=== PATIENT | female | born 1995 | race Caucasian/White ===

== ENCOUNTER 2022-02-13 08:40 | Outpatient (CLI) | payer OTHER, SELFPAY ==
[2022-02-13 09:06] VITALS: BP 133/83; PULSE 112
[2022-02-13 09:19] VITALS: RESP 16
== END 2022-02-13 09:35 | disposition home or self-care (01) ==
LOC: OPOB 08:48 → OBGYN 08:49
PROVIDERS: Visit Provider Obstetrics & Gynecology
DX: O36.8190 Decreased fetal movements, unspecified trimester, not applicable or unspecified (principal); Z3A.00 Weeks of gestation of pregnancy not specified
CPT/HCPCS: 99211

== ENCOUNTER 2022-03-26 14:38 | Emergency (ER) | payer OTHER, SELFPAY ==
[2022-03-26 14:54] VITALS: BP 144/115; PULSE 112; RESP 22; TEMP 36.8; O2SAT 99; BMI 29.2
--- NOTE | 2022-03-26 14:54 | PC.NURSE ---
Patient upon arrival to ER states she can feel baby move, denies leaking fluids, denies bleeding and does have some minor cramping.
--- NOTE | 2022-03-26 15:00 | PC.NURSE ---
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
--- NOTE | 2022-03-26 15:47 | ED_ITS ---
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 She then made her way to OB for monitoring who was concerned about her and sent her to the emergency department for further evaluation. She has a history of having preeclampsia with her first and was induced at 37 weeks resulting in a low transverse . She denies any difficulty with speech, focal weakness etc. Her who is with her states that she is talking normally and otherwise seems normal although she seems a bit little bit delayed in some of her answers to typical questions. She is eating normally today has had no recent illness. She states she has had good movement today and has had no other issues during this . She currently takes 81 mg of aspirin daily for prophylaxis against preeclampsia. She did not use tobacco or alcohol or street drugs. Location: head Associated symptoms: Reports no associated symptoms and headache(s); Deny chest pain, dyspnea, nausea, rash, palpitations or vomiting Review of Systems Const: Denies: fever(s), chills or body aches Eyes: Reports: blurry vision; Denies: change in vision or blind spots ENMT: Denies: throat pain, odynophagia or disequilibrium Card: Denies: chest pain, palpitations, irregular heart rhythm or swelling of feet/ankles Resp: Denies: dyspnea, productive cough or non-productive cough GI: Denies: abdominal pain, nausea or vomiting : Denies: flank pain, difficulty voiding or dysuria Musc: Denies: neck pain, back pain or extremity pain Skin/Breast: Denies: rash Neuro: Reports: headache(s); Denies: numbness in extremities, weakness in extremities, Slurred speech present or seizure-like activity Psych: Denies: anxiety or depression Endo: Denies: polyuria or polydipsia Danis/Lymph: Denies: easy bruising All/Imm: Denies: urticaria Physical Exam Narrative: EXAM NARRATIVE: Alert, makes good eye contact, speaks in generally goal-directed sentences. Const: COMMON NORMALS: no acute distress and patient oriented x3 GENERAL APPEARANCE: cooperative and comfortable HENMT: COMMON NORMALS: normocephalic, atraumatic, Normal nasal mucous membranes and turbinates present and moist oral mucous membranes HEAD & SCALP: normocephalic and atraumatic; no Temporal artery tenderness present NOSE: Normal nasal mucous membranes and turbinates present Eye: COMMON NORMALS: Equal, round and reactive pupils present, EOMs intact bilaterally, conjunctivae normal and no papilledema CONJUNCTIVA: Yes conjunctivae normal PUPIL: Yes Equal, round and reactive pupils present DIRECT OPHTHALMOSCOPY: Yes no papilledema Neck/C-Spine: COMMON NORMALS: full ROM, no lymphadenopathy, no meningeal signs and no JVD Lymph: LYMPHATIC: no lymphadenopathy noted Chest: COMMONS NORMALS: normal inspection of the chest Resp: COMMON NORMALS: normal respiratory effort, No retractions and No use of accessory muscles Cardio: COMMON NORMALS: no JVD, regular rate, regular rhythm, No murmurs present (Cardio) and Peripheral pulses 2+ throughout RATE: regular rate RHYTHM: regular rhythm PERIPHERAL PULSES: Peripheral pulses 2+ throughout GI: COMMON NORMALS: Soft to palpation PALPATION: Yes Soft to palpation OTHER: She has a nontender uterus with the fundus below the subxiphoid region. : COMMON NORMALS: Yes no CVA tenderness BLADDER/KIDNEY EXAM: Yes no CVA tenderness Back/Pelvis: COMMON NORMALS: no CVA tenderness, thoracic and lumbar spine normal to inspection and no thoracic nor lumbar tenderness Extremity: COMMON NORMALS: normal to inspection, full ROM, capillary refill normal, no calf tenderness and no pedal edema Neuro: COMMON NORMALS: patient oriented x3, no focal motor deficits, no sensory deficits noted and deep tendon reflexes 2+ bilaterally MENINGEAL SIGNS: Yes no meningeal signs OTHER: NIH examination resulted in a stroke score of 0 at this time. Psych: COMMON NORMALS: mental status grossly normal Skin: COMMON NORMALS: no rashes or lesions noted and turgor normal GENERAL SKIN EXAM: no rashes or lesions noted and turgor normal Course Reevaluation(s): Reevaluation #1: Patient resting comfortably. No new or focal findings. Pressures are well controlled at this time. Awaiting urine protein creatinine ratio which she appears to have no protein on initial urine analysis but so I suspect that this will also be unremarkable. does relate that there may be a contributing factor in her presentation today. He states that they are currently living with his parents for short period of time while their home is being remodeled and there is a been a lot of stressors at home and he wonders if that contributed to some of her symptoms earlier today. Certainly not out of the question and thus far her work-up has been very reassuring which supports that. The only outliers her initial blood pressure but we have had no other subsequent blood pressures of concern. Time: 17:33 Reevaluation #2: Urine creatinine protein ratio are very reassuring. 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 She her pressures have been reasonable while in the emergency department other than her initial pressure and she has no other findings of concern at this time. Discussed home blood pressure monitoring and close OB follow-up. At this time does not appear to have any evidence of an ongoing emergency medical condition and can be safely discharged with outpatient follow-up and good return precautions. 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 We reviewed her current findings and because of the mentation symptoms and if concern remains after work up about early preeclampsia and consideration for transfer to a location where there is maternal- medicine support. Time: 16:31 Vital Signs: Vital signs: Vital Signs Temperature 98.2 F 03/26/22 14:54 Pulse Rate 94 03/26/22 18:30 Respiratory Rate 16 03/26/22 18:30 Blood Pressure 115/76 03/26/22 18:30 Pulse Oximetry 97 03/26/22 18:30 MDM - General Adult Medical Decision Making Patient 29+ weeks with a history of preeclampsia with first with initial poor concentration and concerns about possible blood pressure elevations etc. Her evaluation here has been nonfocal in terms of her clinical examination. Her initial pressure was elevated but she is not had any sustained concerning blood pressures that would be in the associated hypertension and/or preeclampsia stayed. Her urine protein creatinine ratio are very reassuring. She did get receive a CT scan because some of her subtle symptoms with headache which is also reassuring. She has been observed in the emergency department for a prolonged period of time with a clinical and stable examination with reassuring heart tones, no other findings suggest other ongoing related concerns at this time. She will monitor her blood pressure at home continue with her 81 mg aspirin and other usual care and follow-up with her gelatin maker utility as scheduled this coming week. She is also instructed to return to this facility as soon as possible for any changing or new symptoms. Stable for discharge at this time. Lab Data I reviewed the patient's lab results. : 03/26/22 15:55 03/26/22 15:[address] 03/26/22 15:48 IMPRESSION: No acute intracranial pathology identified by CT. Laboratory Results WBC 10.5 10^3/uL (4.0-10.0) H 03/26/22 15:55 RBC 4.11 10^6/uL (4.1-5.3) 03/26/22 15:55 Hgb 11.0 g/dL (11.5-15.3) L 03/26/22 15:55 Hct 34.1 % (37.0-47.0) L 03/26/22 15:55 MCV 83.0 fl (81-99) 03/26/22 15:55 MCH 26.8 pg (28.0-34.0) L 03/26/22 15:55 MCHC 32.3 g/dL (30.0-36.0) 03/26/22 15:55 RDW 13.2 % (12.1-15.1) 03/26/22 15:55 Plt Count 367 10^3/cmm (130-400) 03/26/22 15:55 MPV 9.2 fL (7.4-10.4) 03/26/22 15:55 Neut % (Auto) 73.2 % 03/26/22 15:55 Lymph % (Auto) 17.2 % 03/26/22 15:55 [place] % (Auto) 7.3 % 03/26/22 15:55 Eos % (Auto) 2.0 % 03/26/22 15:55 Baso % (Auto) 0.1 % 03/26/22 15:55 Neut # (Auto) 7.68 10^3/uL (1.8-7.7) 03/26/22 15:55 Lymph # (Auto) 1.8 10^3/uL (0.8-4.8) 03/26/22 15:55 [place] # (Auto) 0.8 10^3/uL (0.2-0.9) 03/26/22 15:55 Eos # (Auto) 0.2 10^3/uL (0.0-0.8) 03/26/22 15:55 Baso # (Auto) 0.0 10^3/uL (0.0-0.1) 03/26/22 15:55 Nucleated RBC % (auto) 0 % 03/26/22 15:55 Nucleated RBCs # 0.0 /100WBC 03/26/22 15:55 Sodium 138 mmol/L (136-145) 03/26/22 15:55 Potassium 4.1 mmol/L (3.5-5.1) 03/26/22 15:55 Chloride 104 mmol/L (98-107) 03/26/22 15:55 Carbon Dioxide 23 mmol/L (22-29) 03/26/22 15:55 Anion Gap 15.1 (5-19) 03/26/22 15:55 BUN 3 mg/dL (6-20) L 03/26/22 15:55 Creatinine 0.4 mg/dL (0.5-0.9) L 03/26/22 15:55 GFR Calculation 192.9 mL/min (90-130) H 03/26/22 15:55 Glucose 113 mg/dL (65-115) 03/26/22 15:55 Calculated Osmolality 283 mOsm/kg (285-295) L 03/26/22 15:55 Calcium 9.4 mg/dL (8.5-10.5) 03/26/22 15:55 Total Bilirubin 0.2 mg/dL (0.15-1.2) 03/26/22 15:55 AST 21 U/L (0-32) 03/26/22 15:55 ALT 9 U/L (0-33) 03/26/22 15:55 Alkaline Phosphatase 89 IU/L (35-105) 03/26/22 15:55 Total Protein 6.2 g/dL (6.6-8.7) L 03/26/22 15:55 Albumin 3.4 g/dL (3.5-5.2) L 03/26/22 15:55 Globulin 2.8 g/dL (1.3-4.6) 03/26/22 15:55 Urine Color Straw (Yellow) 03/26/22 15:55 Urine Appearance Clear (CLEAR) 03/26/22 15:55 Urine pH 6 (5-7) 03/26/22 15:55 Ur Specific [place] 1.010 (1.005-1.030) 03/26/22 15:55 Urine Protein Neg (Negative) 03/26/22 15:55 Urine Glucose (UA) Norm (Normal) 03/26/22 15:55 Urine Ketones Negative (Negative) 03/26/22 15:55 Urine Blood Neg (Negative) 03/26/22 15:55 Urine Nitrate Negative (Negative) 03/26/22 15:55 Urine Bilirubin Neg (Negative) 03/26/22 15:55 Urine Urobilinogen Norm mg/dL (Negative) 03/26/22 15:55 Ur Leukocyte Esterase Negative (Negative) 03/26/22 15:55 U Random Total Protein 4 mg/dL 03/26/22 15:55 Urine Creatinine 15 mg/dL (28-217) L 03/26/22 15:55 Protein/Creatinin Ratio 0.27 mg/mg CR 03/26/22 15:55 Discharge Plan Discharge Patient Disposition: Home Clinical Impression: Transient elevated blood pressure, Intrauterine Condition: Stable Prescriptions: No Action aspirin [Aspir-81] 81 mg Tablet,Delayed Release (Dr/Ec) 81 mg PO DAILY 0RF [id number] ac-dha 30 mg iron- 1.4 mg-300 mg Combo Pack 1 pkg PO DAILY 0RF fluticasone propion-salmeterol 100-50 mcg/dose blister with device 1 inh INHALATION BID 0RF Discharge Orders: Discharge ED (Routine); Ordered 03/26/22 Ordered By: Carter Ventura Discharge Diet: Usual diet Discharge Activity: Resume usual activity Patient Instructions: Opioid Safety Activity Restrictions/Additional Instructions: Continue your vitamins and 81 mg aspirin daily. Monitor your blood pressure twice daily when you are sitting quietly for 10 to 15 minutes. If your blood pressure elevates greater than 135/85 continuously or you develop other concerning symptoms that we discussed return to this or the nearest emergency department. Follow-up with your gelatin maker utility as scheduled. Coding Level of Care Code ED Freelance Patternmaker for Lauren Fwd Exam Comprehensive
--- NOTE | 2022-03-26 15:48 | CTR_ITS ---
PROCEDURE INFORMATION: Exam: CT Head Without Contrast Exam date and time: 03/26/2022 4:00 PM Age: 26 years old Clinical indication: Pain; Headache; Additional info: WHITTEN, abn mental status, 29 weeks pg-shield TECHNIQUE: Imaging protocol: Computed tomography of the head without contrast. Radiation optimization: All CT scans at this facility use at least one of these dose optimization techniques: automated exposure control; mA and/or kV adjustment per patient size (includes targeted exams where dose is matched to clinical indication); or iterative reconstruction. COMPARISON: No relevant prior studies available. RADIATION DOSE METRICS: Total DLP (mGy-cm): 692.49 FINDINGS: Brain: There is no acute intracranial hemorrhage or abnormal extra-axial fluid collection identified. There is no intracranial mass effect or shift of midline structures. The rutledge-white differentiation is preserved throughout. There is no sulcal effacement. The basilar cisterns are open. Cerebral ventricles: No hydrocephalus or ventricular effacement. Paranasal sinuses: Visualized sinuses are unremarkable. No fluid levels. Mastoid air cells: Visualized mastoid air cells are well aerated. Bones/joints: No calvarial fracture or destructive osseous lesions are seen. Soft tissues: Unremarkable. CT/CT head wo con* [id number] IMPRESSION: No acute intracranial pathology identified by CT.
[2022-03-26 16:02] LABS: Add Urine Microscopic? NO; Charge for UA Resulting for Rev
[2022-03-26 16:06] VITALS: PULSE 96; RESP 19; O2SAT 97
[2022-03-26 16:12] LABS: Basophils % 0.1 %; Eosinophils # 0.2 10^3/uL (0.0-0.8); Hematocrit 34.1 % (37.0-47.0); Lymphocytes # 1.8 10^3/uL (0.8-4.8); Lymphocytes % 17.2 %; Mean Corpuscular HGB Conc 32.3 g/dL (30.0-36.0); Mean Corpuscular Hemoglobin 26.8 pg (28.0-34.0); Mean Platelet Volume 9.2 fL (7.4-10.4); Monocytes # 0.8 10^3/uL (0.2-0.9); Monocytes % 7.3 %; Neutrophils # 7.68 10^3/uL (1.8-7.7); Neutrophils % 73.2 %; Nucleated Red Blood Cells % 0 %; Platelet Count 367 10^3/cmm (130-400); Red Blood Count 4.11 10^6/uL (4.1-5.3); Red Cell Distribution Width 13.2 % (12.1-15.1); White Blood Count 10.5 10^3/uL (4.0-10.0)
[2022-03-26 16:29] LABS: Alanine Aminotransferase 9 U/L (0-33); Albumin Level 3.4 g/dL (3.5-5.2); Alkaline Phosphatase 89 IU/L (35-105); Blood Urea Nitrogen 3 mg/dL (6-20); Calcium 9.4 mg/dL (8.5-10.5); Carbon Dioxide 23 mmol/L (22-29); Chloride 104 mmol/L (98-107); Globulin 2.8 g/dL (1.3-4.6); Glomerular Filtration Rate 192.9 mL/min (90-130); Glucose 113 mg/dL (65-115); Osmolality Calculated 283 mOsm/kg (285-295); Sodium 138 mmol/L (136-145); Total Bilirubin 0.2 mg/dL (0.15-1.2); Total Protein 6.2 g/dL (6.6-8.7)
[2022-03-26 16:31] LABS: Bilirubin Urine Neg (Negative); Blood Urine Neg (Negative); Glucose Urine UA Norm (Normal); Ketones Urine Negative (Negative); Leukocyte Esterase Urine Negative (Negative); Nitrate Urine Negative (Negative); Protein Urine Neg (Negative); Urine Appearance Clear (CLEAR); Urine Color Straw (Yellow); Urobilinogen Urine Norm (Negative); pH Urine 6 (5-7)
[2022-03-26 16:40] LABS: Anion Gap 15.1 (5-19); Aspartate Amino Transferase 21 U/L (0-32); Potassium 4.1 mmol/L (3.5-5.1)
[2022-03-26 17:30] VITALS: BP 119/72; PULSE 99; RESP 16; O2SAT 99
[2022-03-26 18:30] VITALS: BP 115/76; PULSE 94; RESP 16; O2SAT 97
[2022-03-26 18:40] LABS: Urine Creatinine 15 mg/dL (28-217); Urine Protein Random 4 mg/dL
[2022-03-26 18:44] LABS: UPRO/UCREAT Ratio 0.27 mg/mg CR
== END 2022-03-26 19:08 | disposition home or self-care (01) ==
PROVIDERS: Emergency Provider Emergency Medicine
DX: O99.891 Other specified diseases and conditions complicating pregnancy (principal); R03.0 Elevated blood-pressure reading, without diagnosis of hypertension; Z3A.29 29 weeks gestation of pregnancy; Z79.82 Long term (current) use of aspirin; Z87.59 Personal history of other complications of pregnancy, childbirth and the puerperium
CPT/HCPCS: 70450; 80053; 81003; 82570; 84156; 85025; 99283

== ENCOUNTER 2022-05-22 06:50 | Outpatient (CLI) | payer OTHER, SELFPAY ==
[2022-05-22 07:00] VITALS: BMI 32.5
[2022-05-22 07:19] VITALS: BP 125/91; PULSE 133
[2022-05-22 07:24] VITALS: RESP 17; TEMP 36.6
[2022-05-22 07:36] LABS: Nitrazine Paper, PH Negative
[2022-05-22 07:39] VITALS: BP 110/75; PULSE 102
[2022-05-22 07:49] LABS: Actim Prom Negative
[2022-05-22 07:55] LABS: Bilirubin Urine Neg (Negative); Blood Urine 2+ (Negative); Glucose Urine UA Norm (Normal); Ketones Urine 1+ (Negative); Nitrate Urine Negative (Negative); Protein Urine Neg (Negative); Specific Gravity, Urine 1.015 (1.005-1.030); Urine Appearance Cloudy (CLEAR); Urine Color Yellow (Yellow); pH Urine 6 (5-7)
[2022-05-22 07:56] LABS: Leukocyte Esterase Urine 2+ (Negative); Urobilinogen Urine Norm (Negative)
[2022-05-22 07:59] VITALS: BP 115/85; PULSE 109
[2022-05-22 08:01] LABS: RBC Urine 0-4 /hpf (0-2); WBC Urine 15-25 /hpf (0-5)
[2022-05-22 08:02] LABS: Add Urine Culture? No; Bacteria Urine 2+ /hpf; Mucus Urine 1+ /hpf; Squamous Epithelial Cell Urine 40-55 /hpf (0-5)
[2022-05-22 08:10] VITALS: BP 115/85; PULSE 109
== END 2022-05-22 08:15 | disposition home or self-care (01) ==
LOC: OPOB 07:00 → OBGYN 07:02
PROVIDERS: Visit Provider Obstetrics & Gynecology
DX: O26.899 Other specified pregnancy related conditions, unspecified trimester (principal); Z3A.00 Weeks of gestation of pregnancy not specified; N89.8 Other specified noninflammatory disorders of vagina
CPT/HCPCS: 59025; 81001; 83986; 84112; 99211

== ENCOUNTER 2022-11-24 10:59 | Outpatient (CLI) | payer MEDICAID, SELFPAY ==
--- NOTE | 2022-11-24 12:06 | XRR_ITS ---
PROCEDURE INFORMATION: Exam: XR Left Knee Exam date and time: 11/24/2022 12:07 PM Age: 27 years old Clinical indication: Left; Patient HX: Chronic low back and lt knee pain, legs give out sometimes; Additional info: Left knee pain TECHNIQUE: Imaging protocol: Radiologic exam of the Left knee. Views: 3 views. COMPARISON: No relevant prior studies available. FINDINGS: Bones/joints: No radiographic evidence of acute fracture or dislocation. Alignment anatomic. Joint spaces preserved. No significant effusion. Soft tissues: Grossly unremarkable. XR/XR knee LT 3V* [id number] IMPRESSION: No acute radiographic findings.
--- NOTE | 2022-11-24 12:06 | XRR_ITS ---
PROCEDURE INFORMATION: Exam: XR Lumbosacral Spine Exam date and time: 11/24/2022 12:07 PM Age: 27 years old Clinical indication: Low back pain; Patient HX: Chronic low back and lt knee pain, legs give out sometimes; Additional info: Lumbar radiculopathy TECHNIQUE: Imaging protocol: Radiologic exam of the lumbosacral spine. Views: 2 or 3 views. COMPARISON: No relevant prior studies available. FINDINGS: Bones/joints: Normal. No acute fracture. Normal alignment. Soft tissues: Grossly unremarkable. XR/XR lumbar spine 2-3V* [id number] IMPRESSION: No acute radiographic findings.
== END 2022-11-24 11:00 | disposition home or self-care (01) ==
LOC: RAD 11:08
PROVIDERS: PCP Family Medicine; Visit Provider Family Medicine
DX: M25.562 Pain in left knee (principal); M54.16 Radiculopathy, lumbar region
CPT/HCPCS: 72100; 73562

== ENCOUNTER 2023-11-08 14:04 | Emergency (ER) | payer OTHER, MEDICAID, SELFPAY ==
[2023-11-08] VITALS (30 sets, daily range): BP systolic 104–144; BP diastolic 68–93; PULSE 65–87; RESP 16–24; TEMP 36.4; O2SAT 94–100; BMI 29.2
--- NOTE | 2023-11-08 14:21 | ECG_ITS ---
[facility] Test Date: 2023-11-08 Pat Name: Jaqueline Molina Department: Room: Gender: Female Quantitative Developer: : 1995 Requested By: Edil Deluca Order Number: [id number] Pedro Pablo MD: Fabiola Nelson M.D. Measurements Intervals [place] Rate: 87 P: 57 TN: 122 QRS: 88 QRSD: 86 T: 67 QT: 295 QTc: 355 Interpretive Statements Atrial fibrillation with controlled ventricular response rate MODERATE T-WAVE ABNORMALITY, CONSIDER INFERIOR ISCHEMIA [-0.1+ mV T-WAVE IN II/aVF] No previous ECG available for comparison Electronically Signed On 11-08-2023 17:43:27 CHEESE PRODUCTION SUPERVISOR by Fabiola Nelson M.D. [email or web address]
--- NOTE | 2023-11-08 14:29 | ED_ITS ---
HPI - Chest Pain 2 General: Chief Complaint: Chest Pain Stated Complaint: chest pain Time Seen by Provider: 11/08/23 14:24 Source: patient Mode of arrival: ambulatory History of Present Illness: 28-year-old female had a syncopal episod e after eating it is in the episode like this about a week ago she is planning to see her PCP tomorrow. She has syncopal episode last week. She has abdominal discomfort about 1/2-hour after eating. She also reports an episode recently where her heart rate went up to 140s and 150s on her Apple Watch monitor. Resolved spontaneously. Did not have a syncopal episode during that time. MD complaint: chest pain Onset (ago): minute(s) Prior episodes: Yes Onset: during rest Associated symptoms: Reports palpitations and syncope; Deny abdominal pain, diaphoresis, dyspnea, fever(s), leg edema, nausea, sense of impending doom or vomiting Treatment prior to arrival: none Review of Systems 2 Const: Denies: fever(s), chills or diaphoresis Card: Reports: palpitations and syncope; Denies: chest pain Resp: Denies: dyspnea GI: Denies: abdominal pain, nausea or vomiting : Denies: dysuria, urinary frequency or urinary urgency Musc: Denies: neck pain or back pain Skin/Breast: Denies: rash PFSH ED 2 PFSH: Medical History Asthma Surgical History History of tubal ligation Bilateral tube removal History of section x 2 Family History Grandmother Diabetes Social History Smoking and tobacco/nicotine status: never used tobacco/nicotine Alcohol intake: current Alcohol intake frequency: holidays/special occasions only Substance/Drug Use: never Additional social history: Raised by aunt and uncle. Parents left early. 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 Physical Exam 2 Const: COMMON NORMALS: no acute distress GENERAL APPEARANCE: cooperative and comfortable ORIENTATION/CONSCIOUSNESS: Yes awake, Yes oriented to person, Yes oriented to place and Yes oriented to time HENMT: COMMON NORMALS: normocephalic, atraumatic and hearing grossly normal bilaterally HEAD & SCALP: normocephalic and atraumatic Resp: COMMON NORMALS: normal respiratory effort, No retractions, No use of accessory muscles and clear to auscultation bilaterally AUSCULTATION: clear to auscultation bilaterally Cardio: COMMON NORMALS: regular rate, regular rhythm and No murmurs present (Cardio) RATE: regular rate RHYTHM: regular rhythm GI: COMMON NORMALS: Soft to palpation and No hepatosplenomegaly present A USCULTATION: Yes normoactive bowel sounds PALPATION: Yes Soft to palpation, No Tenderness to palpation present (GI), No Guarding due to palpation present (GI) and Yes No hepatosplenomegaly present Extremity: COMMON NORMALS: normal to inspection, capillary refill normal, no clubbing, cyanosis or edema, no calf tenderness and no pedal edema Neuro: SENSORIUM/ORIENTATION: Yes oriented to person, Yes oriented to place and Yes oriented to time Skin: COMMON NORMALS: no rashes or lesions noted GENERAL SKIN EXAM: no rashes or lesions noted Course 2 Vital Signs: Vital signs: Vital Signs Temperature 97.6 F 11/08/23 14:17 Pulse Rate 71 11/08/23 16:55 Respiratory Rate 19 H 11/08/23 16:55 Blood Pressure 107/72 11/08/23 16:30 Pulse Oximetry 97 11/08/23 16:55 Oxygen Delivery Me thod Room Air 11/08/23 15:30 MDM - Chest Pain Medical Decision Making Patient had syncopal episodes twice now. No acute findings in the emergency room. You can safely be discharged home however she should have a 48-hour Holter monitor she described an episode at home her heart rate was up in the 140s and 150s initially we will get an echocardiogram set up and have her follow-up with her primary care doctor return if she has further problems. Reviewed potential triggers with her does not sound like she really has any of these that are likely to be affecting. She does not use alcohol she is not using again decongestants she did not have excessive caffeine intake or energy drink intake. Recheck if not improving or has recurrence since. Medical Records I reviewed the patient's medical records. Lab Data I reviewed the patient's lab results. 11/08/23 15:00 11/08/23 15:00 Laboratory Results WBC 9.12 10^3/uL (3.29-11.43) 11/08/23 15:00 RBC 5.10 10^6/uL (3.85-5.65) 11/08/23 15:00 Hgb 13.90 g/dL (11.27-16.99) 11/08/23 15:00 Hct 43.5 % (36-47) 11/08/23 15:00 MCV 85.3 fl (85-98) 11/08/23 15:00 MCH 27.3 pg (27-33) 11/08/23 15:00 MCHC 32.0 g/dL (30-55) 11/08/23 15:00 RDW 13.7 % (12.1-15.1) 11/08/23 15:00 Plt Count 355 10^3/cmm (157-399) 11/08/23 15:00 MPV 8.8 fL (7.4-10.4) 11/08/23 15:00 Neut % (Auto) 67.1 % 11/08/23 15:00 Lymph % (Auto) 23.2 % 11/08/23 15:00 [place] % (Auto) 6.4 % 11/08/23 15:00 Eos % (Auto) 2.7 % 11/08/23 15:00 Baso % (Auto) 0.5 % 11/08/23 15:00 Neut # (Auto) 6.11 10^3/uL (1.8-7.7) 11/08/23 15:00 Lymph # (Auto) 2.1 10^3/uL (0.8-4.8) 11/08/23 15:00 [place] # (Auto) 0.6 10^3/uL (0.2-0.9) 11/08/23 15:00 Eos # (Auto) 0.3 10^3/uL (0.0-0.8) 11/08/23 15:00 Baso # (Auto) 0.1 10^3/uL (0.0-0.1) 11/08/23 15:00 Nucleated RBC % (auto) 0 % 11/08/23 15:00 Nucleated RBCs # 0.0 /100WBC 11/08/23 15:00 Sodium 137 mmol/L (136-145) 11/08/23 15:00 Potassium 3.4 mmol/L (3.5-5.1) L 11/08/23 15:00 Chloride 101 mmol/L (98-107) 11/08/23 15:00 Carbon Dioxide 27 mmol/L (22-29) 11/08/23 15:00 Anion Gap 12.4 (5-19) 11/08/23 15:00 BUN 5 mg/dL (6-20) L 11/08/23 15:00 Creatinine 0.6 mg/dL (0.5-0.9) 11/08/23 15:00 GFR Calculation 119.0 mL/min (90-130) 11/08/23 15:00 Glucose 90 mg/dL (65-115) 11/08/23 15:00 Calculated Osmolality 281 mOsm/kg (285-295) L 11/08/23 15:00 Calcium 9.6 mg/dL (8.5-10.5) 11/08/23 15:00 Total Bilirubin 0.4 mg/dL (0.15-1.2) 11/08/23 15:00 AST 12 U/L (0-32) 11/08/23 15:00 ALT 10 U/L (0-33) 11/08/23 15:00 Alkaline Phosphatase 75 U/L (35-105) 11/08/23 15:00 Troponin T Baseline < 6 ng/L (0-10) 11/08/23 15:00 Total Protein 7.2 g/dL (6.6-8.7) 11/08/23 15:00 Albumin 4.4 g/dL (3.5-5.2) 11/08/23 15:00 Globulin 2.8 g/dL (1.3-4.6) 11/08/23 15:00 HCG, Qual Negative (Negative) 11/08/23 15:00 All radiology interpretation(s) finalized by discharge Discharge Plan Discharge Patient Disposition: Home Clinical Impression: Syncope Condition: Stable Prescriptions: No Action fluticasone propion-salmeterol 250-50 mcg/dose blister with device 1 inh inhalation Q12H Qty: 60 6RF montelukast 10 mg tablet 10 mg PO DAILY Qty: 30 6RF sertraline 50 mg tablet 50 mg PO DAILY Qty: 30 3RF albuterol sulfate [ProAir HFA] 90 mcg/actuation HFA aerosol inhaler 2 puff inhalation Q6H PRN (Reason: shortness of breath or wheezing) Qty: 8.5 6RF [id number] ac-dha 30 mg iron- 1.4 mg-300 mg Combo Pack 1 pkg PO DAILY Discharge Orders: Discharge ED (Routine); Ordered 11/08/23 Ordered By: Edil Carrillo Referrals: Cecilio Harris MD [Primary Care Provider] - Discharge Diet: Usual diet Discharge Activity: Increase activity as tolerated Patient Instructions: Opioid Safety, Pain Management Activity Restrictions/Additional Instructions: Thank you for choosing [facility] for your healthcare needs today. Please realize this is an emergency room and that we are providing you with a medical screening exam and this may not be complete and all inclusive of all the testing and or work up that you may need to determine your ailment or severity of your illness. It is very important that you follow up as instructed or that you return to the Emergency Department should you have concerns or if your condition changes or worsens in any way. You were seen today for a near syncopal episode. Cardiac enzymes and laboratory test the emergency room did not show any significant abnormalities. Would recommend that he have an outpatient echocardiogram and 48-hour Holter monitor and follow-up with Dr. Harris. If you have recurrent episodes return to the emergency room. Coding Level of Care Code ED Apparatus Lineman for Lauren Gordillo
--- NOTE | 2023-11-08 15:00 | XR_ITS ---
WS: [id number] Portable AP upright chest, 11/08/2023 Clinical Data: dyspnea/cough Comparison: None. Findings: No nodules, masses or effusions are seen. The heart is normal. The pulmonary vascularity is not increased. No pneumonia or pneumothorax is seen. Monitor leads are on the chest wall. Impression: Negative chest.
[2023-11-08 15:20] LABS: Basophils # 0.1 10^3/uL (0.0-0.1); Basophils % 0.5 %; Eosinophils # 0.3 10^3/uL (0.0-0.8); Eosinophils % 2.7 %; Hematocrit 43.5 % (36-47); Lymphocytes # 2.1 10^3/uL (0.8-4.8); Lymphocytes % 23.2 %; Mean Corpuscular Hemoglobin 27.3 pg (27-33); Mean Corpuscular Volume 85.3 fl (85-98); Mean Platelet Volume 8.8 fL (7.4-10.4); Monocytes # 0.6 10^3/uL (0.2-0.9); Monocytes % 6.4 %; Neutrophils # 6.11 10^3/uL (1.8-7.7); Neutrophils % 67.1 %; Nucleated Red Blood Cells % 0 %; Platelet Count 355 10^3/cmm (157-399); Red Cell Distribution Width 13.7 % (12.1-15.1); White Blood Count 9.12 10^3/uL (3.29-11.43)
[2023-11-08 15:37] LABS: Troponin(5th) Baseline < 6 ng/L (0-10)
[2023-11-08 15:38] LABS: Alanine Aminotransferase 10 U/L (0-33); Albumin Level 4.4 g/dL (3.5-5.2); Alkaline Phosphatase 75 U/L (35-105); Anion Gap 12.4 (5-19); Aspartate Amino Transferase 12 U/L (0-32); Blood Urea Nitrogen 5 mg/dL (6-20); Calcium 9.6 mg/dL (8.5-10.5); Carbon Dioxide 27 mmol/L (22-29); Chloride 101 mmol/L (98-107); Globulin 2.8 g/dL (1.3-4.6); Glucose 90 mg/dL (65-115); Osmolality Calculated 281 mOsm/kg (285-295); Potassium 3.4 mmol/L (3.5-5.1); Sodium 137 mmol/L (136-145); Total Bilirubin 0.4 mg/dL (0.15-1.2); Total Protein 7.2 g/dL (6.6-8.7)
[2023-11-08 15:43] LABS: HCG, Serum Qual Negative (Negative)
--- NOTE | 2023-11-08 17:00 | ECG_ITS ---
[facility] Test Date: 2023-11-08 Pat Name: Jaqueline Molina Department: Room: Gender: Female Sec Reporting Consultant: : 1995 Requested By: Edil Deluca Order Number: [id number] Pedro Pablo MD: Fabiola Nelson M.D. Measurements Intervals [place] Rate: 61 P: 58 WI: 116 QRS: 85 QRSD: 98 T: 121 QT: 384 QTc: 388 Interpretive Statements SINUS RHYTHM WITH SHORT WI INTERVAL NONSPECIFIC T-WAVE ABNORMALITY Compared to ECG 11/08/2023 14:11:58 Short [place] interval now present Possible ischemia no longer present T-wave abnormality still present Electronically Signed On 11-08-2023 17:51:00 SOLDER [employer]EVEL[employer]AR[employer] by Fabiola Nelson M.D. [id number]
== END 2023-11-08 17:19 | disposition home or self-care (01) ==
PROVIDERS: Emergency Provider Family Medicine; PCP Family Medicine
DX: R55 Syncope and collapse (principal)
CPT/HCPCS: 71045; 80053; 84484; 84703; 85025; 93005; 99285

== ENCOUNTER 2023-11-10 17:09 | Emergency (ER) | payer OTHER, SELFPAY ==
--- NOTE | 2023-11-10 17:14 | ECG_ITS ---
[facility] Test Date: 2023-11-10 Pat Name: Jaqueline Molina Department: Room: Gender: Female Software Development Coordinator: : 1995 Requested By: Alysha Sharma Order Number: [id number] Pedro Pablo MD: Ana Escobedo M.D. Measurements Intervals [place] Rate: 85 P: 45 [place]: 134 QRS: 79 QRSD: 80 T: 44 QT: 353 QTc: 421 Interpretive Statements SINUS RHYTHM WITH SINUS ARRHYTHMIA LOW QRS VOLTAGE IN PRECORDIAL LEADS [QRS DEFLECTION < 1.0 mV IN CHEST LEADS] NONSPECIFIC T-WAVE ABNORMALITY Compared to ECG 11/08/2023 17:02:20 Low QRS voltage now present Short [place] interval no longer present T-wave abnormality still present Electronically Signed On 11-10-2023 22:20:46 TRIAL JUSTICE by Ana Escobedo M.D. [email or web address] ([id number]
--- NOTE | 2023-11-10 17:19 | CTR_ITS ---
PROCEDURE INFORMATION: Exam: CT Head Without Contrast Exam date and time: 11/10/2023 5:44 PM Age: 28 years old Clinical indication: Syncope and collapse TECHNIQUE: Imaging protocol: Computed tomography of the head without contrast. Radiation optimization: All CT scans at this facility use at least one of these dose optimization techniques: automated exposure control; mA and/or kV adjustment per patient size (includes targeted exams where dose is matched to clinical indication); or iterative reconstruction. REPORTING DATA: Count of CT and Cardiac NM exams in prior 12 months: This patient has received 0 known CTs and 0 known cardiac nuclear medicine studies in the 12 months prior to the current study. COMPARISON: CT head wo con* [id number] 03/26/2022 4:00 PM RADIATION DOSE METRICS: Total DLP (mGy-cm): 959 FINDINGS: Brain: Normal. No hemorrhage. Unremarkable white matter. No mass effect. Cerebral ventricles: No ventriculomegaly. Paranasal sinuses: Visualized sinuses are unremarkable. No fluid levels. Mastoid air cells: Visualized mastoid air cells are well aerated. Bones/joints: Unremarkable. No acute fracture. Soft tissues: Unremarkable. CT/CT head wo con* [id number] IMPRESSION: No acute intracranial abnormality.
[2023-11-10 17:20] VITALS: BP 156/111; PULSE 88; RESP 18; TEMP 36.3; O2SAT 100; BMI 31.2
--- NOTE | 2023-11-10 17:31 | ED_ITS ---
HPI - Syncope 2 General: Chief Complaint: Syncope Stated Complaint: passing out Time Seen by Provider: 11/10/23 17:16 Source: patient Mode of arrival: ambulatory Limitations: no limitations History of Present Illness: 20-year-old female has been having synco pal events over the last few days she was seen here 2 days ago when she had a syncopal event. Patient's workup then was normal she had follow-up with PCP yesterday. Patient is at work today and passed out again patient currently states she just feels very tired she denies any pain anywhere denies any worsening proving factors. Associated symptoms: Deny abdominal pain, chest pain, fever(s), headache(s) or nausea Review of Systems 2 Const: Denies: fever(s), chills, body aches or change in appetite Eyes: Denies: blurry vision or eye discomfort ENMT: Denies: throat pain or dental pain Card: Reports: syncope; Denies: chest pain Resp: Denies: dyspnea GI: Denies: abdominal pain, nausea, vomiting or diarrhea Musc: Denies: neck pain or back pain Skin/Breast: Denies: rash Neuro: Denies: headache(s) PFSH ED 2 PFSH: Medical History Asthma Surgical History History of tubal ligation Bilateral tube removal History of section x 2 Family History Grandmother Diabetes Social History Smoking and tobacco/nicotine status: never used tobacco/nicotine Alcohol intake: current Alcohol intake frequency: holidays/special occasions only Substance/Drug Use: never Additional social history: Raised by aunt and uncle. Parents left early. 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 Physical Exam 2 Const: COMMON NORMALS: no acute distress, patient oriented x3 and healthy appearing HENMT: COMMON NORMALS: normocephalic and atraumatic HEAD & SCALP: n ormocephalic and atraumatic Eye: COMMON NORMALS: Equal, round and reactive pupils present and EOMs intact bilaterally PUPIL: Yes Equal, round and reactive pupils present Neck/C-Spine: COMMON NORMALS: full ROM and supple Chest: COMMONS NORMALS: normal inspection of the chest and normal palpation of entire chest wall Resp: COMMON NORMALS: normal respiratory effort, No retractions, No use of accessory muscles and clear to auscultation bilaterally AUSCULTATION: clear to auscultation bilaterally Cardio: COMMON NORMALS: regular rate, regular rhythm and No murmurs present (Cardio) RATE: regular rate RHYTHM: regular rhythm GI: COMMON NORMALS: Normal to inspection, nondistended, normoactive bowel sounds present, Soft to palpation, non-tender and no masses PALPATION: Yes Soft to palpation Extremity: COMMON NORMALS: normal to inspection and full ROM Neuro: COMMON NORMALS: patient oriented x3, moves all extremities and no focal motor deficits Psych: COMMON NORMALS: mental status grossly normal, Normal thought process present and cooperative THOUGHT PROCESS: Normal thought process present Skin: COMMON NORMALS: no rashes or lesions noted and no wounds GENERAL SKIN EXAM: no rashes or lesions noted Course 2 Vital Signs: Vital signs: Vital Signs Temperature 97.4 F L 11/10/23 17:20 Pulse Rate 94 11/10/23 19:19 Respiratory Rate 29 H 11/10/23 19:19 Blood Pressure 110/71 11/10/23 19:19 Pulse Oximetry 93 11/10/23 19:19 Oxygen Delivery Me thod Room Air 11/10/23 19:19 MDM - Syncope Medical Decision Making Patient presents after a syncopal event she has been well-appearing here EKG x- ray head CT are all normal we will get her follow-up with neurology as well she feels improved she is stable for discharge return if worsening. Medical Records I reviewed the patient's medical records. Lab Data I reviewed the patient's lab results. 11/10/23 17:40 11/10/23 17:[address] 11/10/23 17:19 IMPRESSION: No acute intracranial abnormality. Chest X-Ray 11/10/23 17:55 IMPRESSION: No acute findings. Laboratory Results WBC 8.61 10^3/uL (3.29-11.43) 11/10/23 17:40 RBC 4.92 10^6/uL (3.85-5.65) 11/10/23 17:40 Hgb 13.60 g/dL (11.27-16.99) 11/10/23 17:40 Hct 41.9 % (36-47) 11/10/23 17:40 MCV 85.2 fl (85-98) 11/10/23 17:40 MCH 27.6 pg (27-33) 11/10/23 17:40 MCHC 32.5 g/dL (30-55) 11/10/23 17:40 RDW 13.9 % (12.1-15.1) 11/10/23 17:40 Plt Count 298 10^3/cmm (157-399) 11/10/23 17:40 MPV 8.8 fL (7.4-10.4) 11/10/23 17:40 Neut % (Auto) 79.9 % 11/10/23 17:40 Lymph % (Auto) 11.0 % 11/10/23 17:40 [place] % (Auto) 5.9 % 11/10/23 17:40 Eos % (Auto) 2.7 % 11/10/23 17:40 Baso % (Auto) 0.3 % 11/10/23 17:40 Neut # (Auto) 6.87 10^3/uL (1.8-7.7) 11/10/23 17:40 Lymph # (Auto) 1.0 10^3/uL (0.8-4.8) 11/10/23 17:40 [place] # (Auto) 0.5 10^3/uL (0.2-0.9) 11/10/23 17:40 Eos # (Auto) 0.2 10^3/uL (0.0-0.8) 11/10/23 17:40 Baso # (Auto) 0.0 10^3/uL (0.0-0.1) 11/10/23 17:40 Nucleated RBC % (auto) 0 % 11/10/23 17:40 Nucleated RBCs # 0.0 /100WBC 11/10/23 17:40 Sodium 136 mmol/L (136-145) 11/10/23 17:40 Potassium 3.8 mmol/L (3.5-5.1) 11/10/23 17:40 Chloride 101 mmol/L (98-107) 11/10/23 17:40 Carbon Dioxide 25 mmol/L (22-29) 11/10/23 17:40 Anion Gap 13.8 (5-19) 11/10/23 17:40 BUN 11 mg/dL (6-20) 11/10/23 17:40 Creatinine 0.7 mg/dL (0.5-0.9) 11/10/23 17:40 GFR Calculation 99.6 mL/min (90-130) 11/10/23 17:40 Glucose 88 mg/dL (65-115) 11/10/23 17:40 POC Glucose 70 mg/dL (70-110) 11/10/23 17:15 Calculated Osmolality 281 mOsm/kg (285-295) L 11/10/23 17:40 Calcium 9.3 mg/dL (8.5-10.5) 11/10/23 17:40 Total Bilirubin 0.6 mg/dL (0.15-1.2) 11/10/23 17:40 AST 12 U/L (0-32) 11/10/23 17:40 ALT 9 U/L (0-33) 11/10/23 17:40 Alkaline Phosphatase 78 U/L (35-105) 11/10/23 17:40 Total Protein 7.3 g/dL (6.6-8.7) 11/10/23 17:40 Albumin 4.4 g/dL (3.5-5.2) 11/10/23 17:40 Globulin 2.9 g/dL (1.3-4.6) 11/10/23 17:40 TSH 1.62 uIU/mL (0.27-4.20) 11/10/23 17:40 HCG, Qual Negative (Negative) 11/10/23 17:40 All radiology interpretation(s) finalized by discharge EKG Data EKG 1: I personally reviewed and interpreted this EKG as follows: EKG interpretation date: 11/10/23 EKG interpretation time: 18:22 Interpretation: nsr hr [address] or t wave abnormalities qrs 80 qtc 395 Discharge Plan Discharge Patient Disposition: Home Clinical Impression: Syncope Qualifiers: Syncope type: unspecified Qualified Code(s): R55 - Syncope and collapse Condition: Stable Prescriptions: No Action fluticasone propion-salmeterol 250-50 mcg/dose blister with device 1 inh inhalation Q12H Qty: 60 6RF montelukast 10 mg tablet 10 mg PO DAILY Qty: 30 6RF sertraline 50 mg tablet 50 mg PO DAILY Qty: 30 3RF albuterol sulfate [ProAir HFA] 90 mcg/actuation HFA aerosol inhaler 2 puff inhalation Q6H PRN (Reason: shortness of breath or wheezing) Qty: 8.5 6RF [id number] ac-dha 30 mg iron- 1.4 mg-300 mg Combo Pack 1 pkg PO DAILY Discharge Orders: Discharge ED (Routine); Ordered 11/10/23 Ordered By: Alysha Sharma Referrals: Freya De La Torre MD [Physician] - 1-3 days Cecilio Harris MD [Primary Care Provider] - Discharge Diet: Advance as tolerated Discharge Activity: Resume usual activity Patient Instructions: Syncope (ED) Coding Level of Care Code ED Family Dinner Service Specialist for Lauren Gordillo
[2023-11-10 17:49] LABS: Basophils % 0.3 %; Eosinophils # 0.2 10^3/uL (0.0-0.8); Eosinophils % 2.7 %; Hematocrit 41.9 % (36-47); Mean Corpuscular HGB Conc 32.5 g/dL (30-55); Mean Corpuscular Hemoglobin 27.6 pg (27-33); Mean Corpuscular Volume 85.2 fl (85-98); Mean Platelet Volume 8.8 fL (7.4-10.4); Monocytes # 0.5 10^3/uL (0.2-0.9); Monocytes % 5.9 %; Neutrophils # 6.87 10^3/uL (1.8-7.7); Neutrophils % 79.9 %; Nucleated Red Blood Cells % 0 %; Platelet Count 298 10^3/cmm (157-399); Red Blood Count 4.92 10^6/uL (3.85-5.65); Red Cell Distribution Width 13.9 % (12.1-15.1); White Blood Count 8.61 10^3/uL (3.29-11.43)
--- NOTE | 2023-11-10 17:55 | XRR_ITS ---
PROCEDURE INFORMATION: Exam: XR Chest Exam date and time: 11/10/2023 6:02 PM Age: 28 years old Clinical indication: Other: Syncope TECHNIQUE: Imaging protocol: Radiologic exam of the chest. Views: 1 view. COMPARISON: CR XR chest 1V portable [id number] 11/08/2023 3:03 PM FINDINGS: Lungs: Unremarkable. No consolidation. Pleural spaces: Unremarkable. No pleural effusion. No pneumothorax. Heart/Mediastinum: Unremarkable. No cardiomegaly. Bones/joints: Unremarkable. XR/XR chest 1V portable [id number] IMPRESSION: No acute findings.
[2023-11-10 18:00] VITALS: BP 134/79; PULSE 86; RESP 16; O2SAT 90
[2023-11-10 18:03] LABS: Glucose Point of Care 70 mg/dL (70-110)
[2023-11-10] MEDS: sodium chloride 0.9% 1,000 ML 999 ML IV (18:09)
[2023-11-10 18:13] LABS: HCG, Serum Qual Negative (Negative)
[2023-11-10 18:15] VITALS: BP 134/79; PULSE 85; RESP 22; O2SAT 95
[2023-11-10 18:24] LABS: Alanine Aminotransferase 9 U/L (0-33); Albumin Level 4.4 g/dL (3.5-5.2); Alkaline Phosphatase 78 U/L (35-105); Anion Gap 13.8 (5-19); Aspartate Amino Transferase 12 U/L (0-32); Blood Urea Nitrogen 11 mg/dL (6-20); Calcium 9.3 mg/dL (8.5-10.5); Carbon Dioxide 25 mmol/L (22-29); Chloride 101 mmol/L (98-107); Creatinine Clr Calc Pharmacy 106.4011; Globulin 2.9 g/dL (1.3-4.6); Glomerular Filtration Rate 99.6 mL/min (90-130); Glucose 88 mg/dL (65-115); Osmolality Calculated 281 mOsm/kg (285-295); Potassium 3.8 mmol/L (3.5-5.1); Sodium 136 mmol/L (136-145); Thyroid Stimulating Hormone 1.62 uIU/mL (0.27-4.20); Total Bilirubin 0.6 mg/dL (0.15-1.2); Total Protein 7.3 g/dL (6.6-8.7)
[2023-11-10 18:30] VITALS: BP 113/70; PULSE 94; RESP 20; O2SAT 30
[2023-11-10 19:00] VITALS: BP 110/71; PULSE 87; RESP 28; O2SAT 88
[2023-11-10 19:19] VITALS: BP 110/71; PULSE 94; RESP 29; O2SAT 93
--- NOTE | 2023-11-11 07:47 | DCPLANNER ---
Message was sent to Dr. Bonner office on 11/11/23 at 0747. Clinic to contact patient for appointment.
== END 2023-11-10 19:35 | disposition home or self-care (01) ==
PROVIDERS: Emergency Provider Emergency Medicine; PCP Family Medicine
DX: R55 Syncope and collapse (principal)
CPT/HCPCS: 36416; 70450; 71045; 80053; 82962; 84443; 84703; 85025; 93005; 96360; 99285; J7030

== ENCOUNTER 2023-11-25 08:27 | Outpatient (CLI) | payer OTHER, MEDICAID, SELFPAY ==
--- NOTE | 2023-11-25 09:00 | USCV_ITS ---
Jaqueline Molina Age: 28 Gender: F : 1995 Exam Date: 11/25/2023 08:48 Ordering Phys: Cecilio Harris MD Technologist: CT Exam Location: [facility] [place] Indication: syncope BP: 136 / 78 HR: 95 Rhythm: Sinus Technical Quality: Adequate MEASUREMENTS (Male / Female) Normal Values 2D ECHO LV Chamber Size 4.6 cm RV Chamber Size 3.8 cm LVOT Diameter 2.0 cm LV Ejection Fraction MOD 2C 61.5 % LV Ejection Fraction 2C AL 61.9 % LA Diameter 3.3 cm LA Width 3.1 cm LA Height 3.3 cm RA Width 3.0 cm RA Height 4.0 cm Aorta at Sinotubular Diameter 2.1 cm IVC Diameter 1.4 cm M-MODE Aortic Annulus Diameter 3.1 cm LA Ao Ratio MM 1.1 MV E Point Septal Separation 0.4 cm DOPPLER AV Peak Velocity 141.0 cm/s LVOT Peak Velocity 62.7 cm/s AV Area Cont Eq vti 1.4 cm squared AV Area Cont Eq pk 1.5 cm squared MV E' Velocity 19.0 cm/s TR Peak Velocity 79.0 cm/s TR Peak Gradient 2.5 mmHg TV Peak E Velocity 72.0 cm/s Right Atrial Pressure 3.0 mmHg Pulmonary Artery Systolic Pressu 5.5 mmHg PV Peak Velocity 126.0 cm/s FINDINGS Left Ventricle Normal left ventricular size and systolic function, EF 58 %. No regional wall motion abnormalities. Right Ventricle The right ventricle is normal in size and function. Right Atrium The right atrium is normal in size. Left Atrium The left atrium is normal in size. Mitral Valve No gross abnormalities noted Aortic Valve No gross abnormalities noted Tricuspid Valve Trace tricuspid valve regurgitation. Pulmonic Valve No gross abnormalities noted. Pericardium Normal pericardium without effusion. Aorta Normal ascending aorta dimension. IVC The inferior vena cava appears normal. CONCLUSIONS Normal left ventricular size and systolic function, EF 58 %. No regional wall motion abnormalities. Trace tricuspid valve regurgitation. Normal cardiac chamber sizes. No significant valvular abnormalities. No intracardiac shunt by color-flow Doppler examination. There is no pericardial effusion. No similar previous studies are available for comparison Dr Fabiola Nelson MD [facility] (Electronically Signed) Final Date: 25 November 2023 12:42 S
== END 2023-11-25 08:28 | disposition home or self-care (01) ==
LOC: RAD 08:29
PROVIDERS: PCP Family Medicine; Visit Provider Family Medicine
DX: R00.2 Palpitations (principal); R55 Syncope and collapse
CPT/HCPCS: 93306

== ENCOUNTER 2023-12-28 16:08 | Emergency (ER) | payer OTHER, MEDICAID, SELFPAY ==
[2023-12-28 16:17] VITALS: BP 139/93; PULSE 78; RESP 14; TEMP 37; O2SAT 99; BMI 24.4
[2023-12-28 16:25] LABS: Glucose Point of Care 78 mg/dL (70-110)
--- NOTE | 2023-12-28 16:32 | ECG_ITS ---
[facility] Test Date: 2023-12-28 Pat Name: Jaqueline Molina Department: Room: Gender: Female Test Developer: : 1995 Requested By: Alysha Sharma Order Number: [id number] Pedro Pablo MD: Julio Cesar Delarosa M.D. Measurements Intervals [place] Rate: 69 P: 30 [place]: 143 QRS: 81 QRSD: 85 T: 48 QT: 375 QTc: 402 Interpretive Statements SINUS RHYTHM Compared to ECG 11/10/2023 18:22:50 Sinus arrhythmia no longer present T-wave abnormality no longer present Electronically Signed On 12-28-2023 16:43:11 SPECTACLE TRUER by Julio Cesar Delarosa M.D. [id number]
--- NOTE | 2023-12-28 16:36 | W.ED.AMS ---
HPI - Altered Mental Status General: Chief Complaint: Altered Mental Status Stated Complaint: passed out Time Seen by Provider: 12/28/23 16:23 Source: patient Mode of arrival: ambulatory History of Present Illness: 28-year-old female presents emergency room after syncopal-like episode while at work she has had multiple disease the last few months she has been seen several times no seizure-like activity she usually recovers in a relatively brief period of time this time took longer to recover she does not much recollection of the events. It was witnessed. It happened at while she was at work there is no precipitating stimuli. She has had evaluation by cardiology including an event monitor which was negative although after the first week of the event monitor she had no further episodes. She has an upcoming appointment with neurology. She has had a couple of CTs and for evaluation to the emergency room all of which have been negative. She is now awake and alert and asymptomatic. MD complaint: decreased responsiveness Review of Systems Const: Denies: fever(s) or chills Card: Denies: chest pain Resp: Denies: dyspnea GI: Denies: abdominal pain : Denies: dysuria, urinary frequency or urinary urgency Musc: Denies: neck pain or back pain Skin/Breast: Denies: rash PFSH ED PFSH: Medical History Asthma Surgical History History of tubal ligation Bilateral tube removal History of section x 2 Family History Grandmother Diabetes Social History Smoking and tobacco/nicotine status: never used tobacco/nicotine Alcohol intake: current Alcohol intake frequency: holidays/special occasions only Substance/Drug Use: never Additional social history: Raised by aunt and uncle. Parents left early. 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 Physical Exam Const: COMMON NORMALS: no acute distress GENERAL APPEARANCE: cooperative and comfortable ORIENTATION/CONSCIOUSNESS: Yes awake, Yes oriented to person, Yes oriented to place and Yes oriented to time HENMT: COMMON NORMALS: normocephalic, atraumatic and hearing grossly normal bilaterally HEAD & SCALP: normocephalic and atraumatic Resp: COMMON NORMALS: normal respiratory effort, No retractions, No use of accessory muscles and clear to auscultation bilaterally AUSCULTATION: clear to auscultation bilaterally Cardio: COMMON NORMALS: regular rate, regular rhythm and No murmurs present (Cardio) RATE: regular rate RHYTHM: regular rhythm GI: COMMON NORMALS: Soft to palpation and No hepatosplenomegaly present AUSCULTATION: Yes normoactive bowel sounds PALPATION: Yes Soft to palpation, No Tenderness to palpation present (GI), No Guarding due to palpation present (GI) and Yes No hepatosplenomegaly present Extremity: COMMON NORMALS: normal to inspection, capillary refill normal, no clubbing, cyanosis or edema, no calf tenderness and no pedal edema Neuro: SENSORIUM/ORIENTATION: Yes oriented to person, Yes oriented to place and Yes oriented to time Skin: COMMON NORMALS: no rashes or lesions noted GENERAL SKIN EXAM: no rashes or lesions noted Course Vital Signs: Vital signs: Vital Signs Temperature 98.6 F 12/28/23 16:17 Pulse Rate 78 12/28/23 16:17 Respiratory Rate 14 12/28/23 16:17 Blood Pressure 139/93 12/28/23 16:17 Pulse Oximetry 99 12/28/23 16:17 Oxygen Delivery Me thod Room Air 12/28/23 16:17 MDM - Altered Mental Status Medical Decision Making Labs unremarkable patient fully recovered no neurologic deficits are noted initially on repeat exam. Extensive discussion had with patient and . At this point I do not think there is much more that could be evaluated in the emergency room several evaluations of a normal however it is important that she continues the outpatient workup through both cardiology and neurology. She has an upcoming neurology appointment. Patient agrees to plan. Suspect there may be a functional component to these episodes. Medical Records I reviewed the patient's medical records. Lab Data I reviewed the patient's lab results. 12/28/23 16:32 12/28/23 16:32 Laboratory Results WBC 6.63 10^3/uL (3.29-11.43) 12/28/23 16:32 RBC 5.02 10^6/uL (3.85-5.65) 12/28/23 16:32 Hgb 13.80 g/dL (11.27-16.99) 12/28/23 16:32 Hct 42.4 % (36-47) 12/28/23 16:32 MCV 84.5 fl (85-98) L 12/28/23 16:32 MCH 27.5 pg (27-33) 12/28/23 16:32 MCHC 32.5 g/dL (30-55) 12/28/23 16:32 RDW 13.8 % (12.1-15.1) 12/28/23 16:32 Plt Count 359 10^3/cmm (157-399) 12/28/23 16:32 MPV 8.8 fL (7.4-10.4) 12/28/23 16:32 Neut % (Auto) 54.5 % 12/28/23 16:32 Lymph % (Auto) 29.1 % 12/28/23 16:32 [place] % (Auto) 11.3 % 12/28/23 16:32 Eos % (Auto) 4.4 % 12/28/23 16:32 Baso % (Auto) 0.5 % 12/28/23 16:32 Neut # (Auto) 3.62 10^3/uL (1.8-7.7) 12/28/23 16:32 Lymph # (Auto) 1.9 10^3/uL (0.8-4.8) 12/28/23 16:32 [place] # (Auto) 0.8 10^3/uL (0.2-0.9) 12/28/23 16:32 Eos # (Auto) 0.3 10^3/uL (0.0-0.8) 12/28/23 16:32 Baso # (Auto) 0.0 10^3/uL (0.0-0.1) 12/28/23 16:32 Nucleated RBC % (auto) 0 % 12/28/23 16: Nucleated RBCs # 0.0 /100WBC 12/28/23 16:32 Sodium 138 mmol/L (136-145) 12/28/23 16:32 Potassium 4.2 mmol/L (3.5-5.1) 12/28/23 16:32 Chloride 102 mmol/L (98-107) 12/28/23 16:32 Carbon Dioxide 26 mmol/L (22-29) 12/28/23 16:32 Anion Gap 14.2 (5-19) 12/28/23 16:32 BUN 7 mg/dL (6-20) 12/28/23 16:32 Creatinine 0.7 mg/dL (0.5-0.9) 12/28/23 16:32 GFR Calculation 99.6 mL/min (90-130) 12/28/23 16:32 Glucose 84 mg/dL (65-115) 12/28/23 16:32 POC Glucose 78 mg/dL (70-110) 12/28/23 16:22 Calculated Osmolality 283 mOsm/kg (285-295) L 12/28/23 16:32 Lactic Acid 1.0 mmol/L (0.5-2.2) 12/28/23 17:39 Calcium 10.0 mg/dL (8.5-10.5) 12/28/23 16:32 Total Bilirubin 0.5 mg/dL (0.15-1.2) 12/28/23 16:32 AST 15 U/L (0-32) 12/28/23 16:32 ALT 13 U/L (0-33) 12/28/23 16:32 Alkaline Phosphatase 82 U/L (35-105) 12/28/23 16:32 Creatine Kinase 91 U/L (26-192) 12/28/23 16:32 Total Protein 7.7 g/dL (6.6-8.7) 12/28/23 16:32 Albumin 4.5 g/dL (3.5-5.2) 12/28/23 16:32 Globulin 3.2 g/dL (1.3-4.6) 12/28/23 16:32 HCG, Qual Negative (Negative) 12/28/23 16:32 No radiology studies performed this visit Discharge Plan Discharge Patient Disposition: Home Clinical Impression: Syncope and collapse Condition: Stable Prescriptions: No Action fluticasone propion-salmeterol 250-50 mcg/dose blister with device 1 inh inhalation Q12H Qty: 60 6RF montelukast 10 mg tablet 10 mg PO DAILY Qty: 30 6RF Hold Instructions: Home Medication placed on hold at Doctor's office sertraline 50 mg tablet 50 mg PO DAILY Qty: 30 3RF albuterol sulfate [ProAir HFA] 90 mcg/actuation HFA aerosol inhaler 2 puff inhalation Q6H PRN (Reason: shortness of breath or wheezing) Qty: 8.5 6RF [id number] ac-dha 30 mg iron- 1.4 mg-300 mg Combo Pack 1 pkg PO DAILY Discharge Orders: Discharge ED (Routine); Ordered 12/28/23 Ordered By: Edil Carrillo Referrals: eCcilio Harris MD [Primary Care Provider] - Patient Instructions: Altered Mental Status (ED), Opioid Safety, Pain Management Activity Restrictions/Additional Instructions: Thank you for choosing [facility] for your healthcare needs today. Please realize this is an emergency room and that we are providing you with a medical screening exam and this may not be complete and all inclusive of all the testing and or work up that you may need to determine your ailment or severity of your illness. It is very important that you follow up as instructed or that you return to the Emergency Department should you have concerns or if your condition changes or worsens in any way. Follow-up with neurology as previously scheduled. Coding Level of Care Code ED Punch Press Feeder for Lauren Gordillo
[2023-12-28 16:44] LABS: Basophils % 0.5 %; Eosinophils # 0.3 10^3/uL (0.0-0.8); Eosinophils % 4.4 %; Hematocrit 42.4 % (36-47); Lymphocytes # 1.9 10^3/uL (0.8-4.8); Lymphocytes % 29.1 %; Mean Corpuscular HGB Conc 32.5 g/dL (30-55); Mean Corpuscular Hemoglobin 27.5 pg (27-33); Mean Corpuscular Volume 84.5 fl (85-98); Mean Platelet Volume 8.8 fL (7.4-10.4); Monocytes # 0.8 10^3/uL (0.2-0.9); Monocytes % 11.3 %; Neutrophils # 3.62 10^3/uL (1.8-7.7); Neutrophils % 54.5 %; Nucleated Red Blood Cells % 0 %; Platelet Count 359 10^3/cmm (157-399); Red Blood Count 5.02 10^6/uL (3.85-5.65); Red Cell Distribution Width 13.8 % (12.1-15.1); White Blood Count 6.63 10^3/uL (3.29-11.43)
[2023-12-28 16:55] LABS: HCG, Serum Qual Negative (Negative)
[2023-12-28 18:08] LABS: Alanine Aminotransferase 13 U/L (0-33); Albumin Level 4.5 g/dL (3.5-5.2); Alkaline Phosphatase 82 U/L (35-105); Anion Gap 14.2 (5-19); Aspartate Amino Transferase 15 U/L (0-32); Blood Urea Nitrogen 7 mg/dL (6-20); Carbon Dioxide 26 mmol/L (22-29); Chloride 102 mmol/L (98-107); Creatine Phosphokinase 91 U/L (26-192); Globulin 3.2 g/dL (1.3-4.6); Glomerular Filtration Rate 99.6 mL/min (90-130); Glucose 84 mg/dL (65-115); Osmolality Calculated 283 mOsm/kg (285-295); Potassium 4.2 mmol/L (3.5-5.1); Sodium 138 mmol/L (136-145); Total Bilirubin 0.5 mg/dL (0.15-1.2); Total Protein 7.7 g/dL (6.6-8.7)
== END 2023-12-28 19:12 | disposition home or self-care (01) ==
PROVIDERS: Emergency Medicine; Emergency Provider Family Medicine; PCP Family Medicine
DX: R55 Syncope and collapse (principal)
CPT/HCPCS: 36415; 36416; 80053; 82550; 82962; 83605; 84703; 85025; 93005; 99284

== ENCOUNTER 2024-01-12 08:07 | Outpatient (CLI) | payer OTHER, SELFPAY ==
--- NOTE | 2024-01-12 09:00 | USCV_ITS ---
JesseJaqueline Age: 28 Gender: F : 1995 Exam Date: 01/12/2024 08:52 Ordering Phys: Livan Gomez MD Technologist: TAMIE [place] [facility] [place]ication: SYNCOPE AND DIZZINESS Risk Factors: Previous Vascular Surgery: Right Brachial BP: / Left Brachial BP: / Right Left Velocity (cm/s) Spectral Plaque Velocity (cm/s) Spectral Plaque Syst/Diast Broadening Syst/Diast Broadening 114.80/29.00 Prox CCA 134.90/ 43.60 139.20/42.50 Mid CCA 129.40/ 41.80 115.20/43.10 Distal CCA 99.90 / 39.80 111.60/32.30 Prox ICA 63.60 / 37.40 83.20/ 39.10 Mid ICA 91.10 / 49.10 77.80/ 45.80 Distal ICA 105.00/ 59.60 91.80 ECA 80.60 1.00 ICA/CCA 1.10 Antegrade Vertebral Antegrade 56.00/ 22.10 cm/s 78.50/ 43.50 cm/s Tri Subclavian Tri 178.4 220.7 0 0 CONCLUSIONS Right ICA stenosis <50%. Left ICA stenosis <50%. Intimal thickening in the common carotid arteries and internal carotid arteries bilaterally. Normal antegrade Doppler flow noted in the right vertebral artery. Normal antegrade Doppler flow noted in the left vertebral artery. Noah Valdes MD (Electronically Signed) Final Date: 12 January 2024 13:06 S
== END 2024-01-12 08:08 | disposition home or self-care (01) ==
LOC: RAD 08:07
PROVIDERS: PCP Family Medicine; Visit Provider Psychiatry & Neurology Neurology
DX: R42 Dizziness and giddiness (principal); R55 Syncope and collapse; I65.23 Occlusion and stenosis of bilateral carotid arteries
CPT/HCPCS: 93880; 99213

== ENCOUNTER 2024-02-04 11:51 | Outpatient (CLI) | payer OTHER, SELFPAY ==
--- NOTE | 2024-02-04 12:00 | MR_ITS ---
WS: [id number] MRA HEAD TECHNIQUE: Axial 3-D TOF images obtained with axial images and axial, sagittal, and coronal 2-D refor matted images. CLINICAL INFORMATION: R55 - Syncope and collapse COMPARISON: CT head 11/10/2023 FINDINGS: Distal vertebral arteries are patent. Basilar artery is patent. Patent LEFT posterior communicating a rtery. Normal vascularity to the WOOL MIXER territory bilaterally. Both ICAs are patent at the skull base. Patent anterior communicating artery. Normal vascularity to t he AGATHA territory. Normal vascularity to the MCA territories bilaterally. No evidence of proximal flow-limiting stenosis or aneurysm. IMPRESSION: Unremarkable intracranial MRA.
== END 2024-02-04 11:52 | disposition home or self-care (01) ==
PROVIDERS: PCP Family Medicine; Visit Provider Psychiatry & Neurology Neurology
DX: R55 Syncope and collapse (principal); R42 Dizziness and giddiness
CPT/HCPCS: 70544

== ENCOUNTER 2025-01-24 19:26 | Emergency (ER) | payer BC, SELFPAY ==
[2025-01-24 19:34] VITALS: BP 128/88; PULSE 103; RESP 20; TEMP 36.4; O2SAT 98; BMI 30.7
--- NOTE | 2025-01-24 19:46 | PC.NURSE ---
pt arrived covered in hives and stating that she was having trouble breathing. When attempting to start a IV on the pt she refused stating I thought you would just give me a epipen . Pt was educated on the importance of having a IV during an allergic reaction. pt still refused.
--- NOTE | 2025-01-24 20:12 | W.ED.ALLEREA ---
HPI - Allergic Reaction General: Chief complaint: Allergic Reaction Stated complaint: allergic reaction mouth swelling hives red skin Time Seen by Provider: 01/24/25 20:02 History of Present Illness: HPI narrative: Patient resents to the ER with complaints of allergic reaction. She started having a rash around her mouth with her lip swelling and this is progressed down her neck into her chest down to her arms turn into hives. Patient has no problems breathing or swallowing. Approximately 2 days ago at work she was around some people smoking cigars and she has been having coughing spells since then. She went to urgent care and she has been placed on prednisone, azithromycin and Tessalon Perles, she has taken those yesterday but not today. The only other different thing the patient has done today. She ate some pizza after she got home from work at about 10 minutes after that is when she started noted. She said she normally does not eat out or eat pizza. She has no known food allergies. Exposure: unknown Known history of allergy to: Penicillin only Associated symptoms: Reports itching and rash Severity: moderate Treatment prior to arrival: none Previous Allergic Reaction History: none Related Data Home Medications ?Medication ?Instructions ?Recorded ?Confirmed vit no.105-iron 30 1 pkg PO DAILY 02/13/22 02/22/24 mg-folic acid 1.4 mg-dha 300 mg oral pack Previous Rx's ?Medication ?Instructions ?Recorded fluticasone 250 mcg-salmeterol 50 1 inh inhalation Q12H #60 ea 02/17/24 mcg/dose blistr powdr for inhalation montelukast 10 mg tablet 10 mg PO DAILY #30 tabs 02/17/24 sertraline 50 mg tablet 50 mg PO DAILY #90 tabs 02/17/24 albuterol sulfate 90 mcg/actuation 2 puff inhalation Q6H PRN 09/05/24 aerosol inhaler shortness of breath or wheezing #8.5 grams Allergies Allergy/AdvReac Type Severity Reaction Status Date / Time Penicillins Allergy Unknown Unknown Verified 02/22/24 10:34 Review of Systems General: Reports: 10 or more systems reviewed and unremarkable except in HPI and below PFSH ED PFSH: Medical History Asthma Surgical History History of tubal ligation Bilateral tube removal History of section x 2 Family History Grandmother Diabetes Social History Smoking and tobacco/nicotine status: never used tobacco/nicotine Alcohol intake: current Alcohol intake frequency: holidays/special occasions only Substance/Drug Use: never Additional social history: Raised by aunt and uncle. Parents left early. 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 Physical Exam Const: COMMON NORMALS: no acute distress, average body habitus, patient oriented x3, no limitations, healthy appearing, alert and well nourished HENMT: COMMON NORMALS: normocephalic, atraumatic, hearing grossly normal bilaterally, external ears normal, Normal external nose present, moist oral mucous membranes and oropharynx normal HEAD & SCALP: normocephalic and atraumatic NOSE: Normal external nose present EXTERNAL EAR: Yes external ears normal Neck/C-Spine: COMMON NORMALS: full ROM, no lymphadenopathy, supple, no meningeal signs, no JVD and Thyroid normal THYROID: Thyroid normal Chest: COMMONS NORMALS: normal inspection of the chest and normal palpation of entire chest wall Resp: COMMON NORMALS: normal respiratory effort, No retractions, No use of accessory muscles and clear to auscultation bilaterally AUSCULTATION: clear to auscultation bilaterally Cardio: COMMON NORMALS: no JVD, regular rate, regular rhythm, S1 normal heart sound present, S2 normal heart sound present, No gallops present (Cardio), No clicks present (Cardio), No murmurs present (Cardio) and No rub (Cardio) RATE: regular rate RHYTHM: regular rhythm HEART SOUNDS: S1 normal heart sound present and S2 normal heart sound present GI: COMMON NORMALS: Normal to inspection, nondistended, normoactive bowel sounds present, Soft to palpation, non-tender, No hepatosplenomegaly present and no masses PALPATION: Yes Soft to palpation and Yes No hepatosplenomegaly present Neuro: COMMON NORMALS: patient oriented x3 SENSORIUM/ORIENTATION: Yes alert MENINGEAL SIGNS: Yes no meningeal signs Course Vital Signs: Vital signs: Vital Signs Temperature 97.5 F L 01/24/25 19:34 Pulse Rate 114 H 01/24/25 20:59 Respiratory Rate 20 H 01/24/25 19:34 Blood Pressure 111/70 01/24/25 20:59 Pulse Oximetry 100 01/24/25 20:59 Oxygen Delivery Me thod Room Air 01/24/25 20:59 MDM - Allergic Reaction Medical Decision Making Patient was given 25 mg Benadryl, 40 mg Pepcid, and instructed to take her current prescription of 40 mg of prednisone. Upon recheck patient patient is feeling much better. Patient be discharged home. Medical Records I reviewed the patient's medical records. Lab Data I reviewed the patient's lab results. No radiology studies performed this visit Discharge Plan Discharge Patient Disposition: Home Clinical Impression: Urticaria Allergic reaction Qualifiers: Encounter type: initial encounter Qualified Code(s): T78.40XA - Allergy, unspecified, initial encounter Condition: Stable Prescriptions: No Action fluticasone propion-salmeterol 250-50 mcg/dose blister with device 1 inh inhalation Q12H Qty: 60 6RF montelukast 10 mg tablet 10 mg PO DAILY Qty: 30 6RF sertraline 50 mg tablet 50 mg PO DAILY Qty: 90 3RF albuterol sulfate 90 mcg/actuation HFA aerosol inhaler 2 puff inhalation Q6H PRN (Reason: shortness of breath or wheezing) Qty: 8.5 6RF [id number] ac-dha 30 mg iron- 1.4 mg-300 mg Combo Pack 1 pkg PO DAILY Discharge Orders: Discharge ED (Routine); Ordered 01/24/25 Ordered By: Mo Amos Referrals: Cecilio Harris MD [Primary Care Provider] - 1 week Patient Instructions: Urticaria (ED), Allergic Reaction Activity Restrictions/Additional Instructions: Please consider continuing use of Benadryl and Pepcid for the next 24 hours to help with your hives. You can use it after that as needed. Please continue your current medications that you have already been prescribed as directed. Thank you for choosing [facility] for your healthcare needs today. Please realize that you were seen in the emergency department and that we are providing you with an emergency medical screening exam and this may not be a complete and all exclusive of all testing and/or medical workup we may need to determine your element or severity of your illness. It is very important that you follow-up as instructed with your primary care provider or specialist for the additional evaluation and to discuss your medical treatment plan. You may return to the emergency department should you have concerns or if your condition changes or worsens in any way. Print Language: Tristanian Coding Level of Care Code ED Family Educator for Lauren Gordillo
[2025-01-24] MEDS: famotidine 20 mg Tablet 40 MG PO (20:18)
[2025-01-24] MEDS: diphenhydrAMINE 25 mg Capsule PO (20:18)
[2025-01-24 20:24] VITALS: BP 112/73; PULSE 100; O2SAT 97
[2025-01-24 20:59] VITALS: BP 111/70; PULSE 114; O2SAT 100
[2025-01-24 21:18] VITALS: BP 130/89; PULSE 90; O2SAT 100
[2025-01-24 21:36] VITALS: BP 129/76; PULSE 85; O2SAT 97
== END 2025-01-24 21:39 | disposition home or self-care (01) ==
PROVIDERS: Emergency Provider Emergency Medicine; PCP Family Medicine
DX: T78.40XA Allergy, unspecified, initial encounter (principal); L50.9 Urticaria, unspecified; X58.XXXA Exposure to other specified factors, initial encounter
CPT/HCPCS: 99283